=== PATIENT | male | born 1960 | race Caucasian/White ===

== ENCOUNTER 2018-09-20 19:38 | Emergency (ER) | payer OTHER, SELFPAY ==
[2018-09-20 19:38] VITALS: BP 125/77; PULSE 70; RESP 15; TEMP 36.7; BMI 24.4
--- NOTE | 2018-09-20 19:49 | RAD_ITS ---
HISTORY: Smashed index finger in a log splitter. Proximal interphalangeal joint. Exam is 3 views of the right index finger. No comparison imaging. Findings: Bony alignment is normal. Cortices are intact. Joint spaces are preserved. No foreign bodies are perceived. RAD/Finger(s) Min 2 Views IMPRESSION: Normal. at 2035 Reported and signed by: Ilya Leyva MD Electronically Signed: Ilya Leyva MD at 20:34 EDT Tel , Service support ,
--- NOTE | 2018-09-20 19:53 | ED.DCSUM_ITS ---
- ER Visit Summary Date of Service: 09/20/18 Chief Complaint: Right index finger injury and laceration History of Present Illness: The patient is a 58 M [id number]. History of ankylosing spondylitis. Patient was loading a wood splitter in the back of a truck. As he was loading it it in his right index finger versus the truck. Causing a laceration and pain to his right index finger. He denies other injuries. Earlier today as he was splinting toward 1 of the pieces avoid hitting him in his lower abdomen he states he is not having pain now. Physical Examination: Middle-aged male no acute distress. Vital signs are stable afebrile. HEENT exam unremarkable. Neck nontender. Lungs to auscultation. Heart regular rhythm no murmur. Chest wall nontender. Abdomen is soft and nontender. He was hit in the suprapubic area with the void and there is no signs of trauma. Is nontender. There is no bruising. He is moving all 4 extremities. Neurovascular intact. Dorsum of the right hand on the index finger proximal to the PIP joint. 1 to 2 cm laceration. Small amount of bleeding. No pulsatile bleeding. However he has full flexion-extension all digits of his hand. He can extend against resistance. Distally his fingers are neurovascular intact with cap refill and touch sensation. There is no foreign body noted. He does have tenderness to his proximal phalanx of his right index finger. There is no gross bony deformity. Otherwise exam unremarkable. Test Results: Right index finger 3 view x-ray shows no fracture. Read by the radiologist and myself. I did go over the films with the patient. Emergency Department Course and Treatment: Patient's tetanus is already up-to-date. Procedure note: Right index finger 2 cm laceration with ER repair. Locally anesthetized with Xylocaine. Wound was explored. Cleaned with Shur-Clens. Copiously irrigated. Closed using 2 simple interrupted 4-0 Ethilon sutures. Patient tolerated procedure well. Was instructed on wound care. Treatment Plan: Wound care. Watch for signs of infection. Suture removal in 10 days Disposition: Discharge Impression: Right index finger laceration with ER repair of 2 cm. This note was generated with [employer] dictation software. It may contain incorrect words, spelling, and punctuation that were not noted in review of the chart prior to signing
--- NOTE | 2018-09-20 20:57 | ED.DEP ---
ED Disposition - Plan for ED Patient: Disposition: Home or Assisted Living Instructions: LACERATION, Hand Referrals: Care Physician,No Primary [Primary Care Provider] - 10 Day for suture removal Additional Instructions: Tylenol and Motrin for pain. Keep wound clean. Suture removal in 10 days. Watch for any signs of infection.
[2018-09-20 21:06] VITALS: PULSE 76; RESP 18; O2SAT 99
--- NOTE | 2018-09-20 21:07 | ED.RN ---
THIS NURSE REVIEWED D/C INSTRUCTIONS WITH PT AND VISITOR. PT VERBALIZED UNDERSTANDING OF INSTRUCTIONS. PT DENIES FURTHER NEEDS OR QUESTIONS AT THIS TIME. PT AMBULATES FROM ROOM ON OWN WITHOUT ASSISTANCE FROM STAFF
== END 2018-09-20 21:08 | disposition home or self-care (01) ==
PROVIDERS: Emergency Provider Emergency Medicine
DX: S61.210A Laceration without foreign body of right index finger without damage to nail, initial encounter (principal); W22.8XXA Striking against or struck by other objects, initial encounter; Y93.9 Activity, unspecified; Y92.9 Unspecified place or not applicable; Y99.9 Unspecified external cause status
CPT/HCPCS: 12001; 73140; 99283